=== PATIENT | female | born 1995 | race American Indian/Alaskan Native ===

== ENCOUNTER 2021-01-28 20:14 | Emergency (ER) | payer OTHER ==
[~2021-01-28] VITALS: Ht 172.7 cm; Wt 154.2 kg
--- OUTSIDE RECORDS SUMMARY | 2021-01-28 20:16 | XMS ---
PreManage Notification: RASHARD CUMMINGS Security [employer] Developer Events No recent Security Events currently on file [facility] There are no care providers on record at this time. Marvin has no Care Guidelines for this patient. Armand VISIT COUNT (12 MO.) 1 ALEJANDRINA Ibrahim TOTAL 1 NOTE: Visits indicate total known visits. ED/C VISIT TRACKING (12 MO.) 01/28/2021 20:15 ALEJANDRINA Hahn OR TYPE: Emergency COMPLAINT: - FALL INPATIENT VISIT TRACKING (12 MO.) No inpatient visits to display in this time frame [email or web address]
[2021-01-28] MEDS ORDERED: EFFEXOR XR37.5 MG PO (20:36)
[2021-01-28] MEDS ORDERED: LORAZEPAM1 MG PO (20:36)
[2021-01-28] MEDS ORDERED: HYDROXYZINE HCL25 MG PO (20:37)
[2021-01-28] MEDS ORDERED: HYDROCODON-ACE1 EA10 PO (21:28)
[2021-01-28] MEDS ORDERED: CRUTCH1 EACH (21:28)
== END 2021-01-28 21:56 | disposition home or self-care (01) ==
LOC: ED 20:14
DX: S80.02XA Contusion of left knee, initial encounter (principal); W01.0XXA Fall on same level from slipping, tripping and stumbling without subsequent striking against object, initial encounter
CPT/HCPCS: 73560; 99283-25

== ENCOUNTER 2022-07-05 17:08 | Emergency (ER) | payer OTHER ==
[~2022-07-05] VITALS: Ht 172.7 cm; Wt 163.3 kg
[~2022-07-05 17:08] MED LIST: ABILIFY2 MG PO; CEPHALEXIN500 M1 PO; CRUTCH1 EACH; DOXYCYCLINE MO100 M1 PO; EFFEXOR XR37.5 MG PO; HYDROCODON-ACE1 EA10 PO; HYDROXYZINE HCL25 MG PO; LORAZEPAM1 MG PO; ONDANSETRON ODT8 MG PO; PRAZOSIN HCL2 MG PO
--- OUTSIDE RECORDS SUMMARY | 2022-07-05 17:12 | XMS ---
PreManage Notification: RASHARD CUMMINGS Security Hr Administrative Assistant Events No recent Security Events currently on file CRITERIA MET - [facility] [place] - 2 Visits in 30 Days CARE PROVIDERS [facility] Case Management 01/30/2021-[facility] PHONE: [phone] Marvin has no Care Guidelines for this patient. Care History Medical/Surgical 01/30/2021 [facility] - PATIENT IS [facility] ELIGIBLE, \T\middot;\T\nbsp; PLEASE REFER PATIENT TO [facility] FOR NON EMERGENT MEDICAL NEEDS. \T\middot;\T\nbsp; [facility] CAN SEE PATIENTS SAME DAY FOR APTS IF PATIENT CALLS FIRST THING IN THE MORNING. E.D. VISIT COUNT (12 MO.) [address] [place] [address] TOTAL 2 NOTE: Visits indicate total known visits. ED/UCC VISIT TRACKING (12 MO.) 07/05/2022 17:09 ALEJANDRINA Hahn OR TYPE: Emergency COMPLAINT: - N/V 07/03/2022 18:13 ALEJANDRINA Hahn OR TYPE: Emergency COMPLAINT: - VOMITING INPATIENT VISIT TRACKING (12 MO.) No inpatient visits to display in this time frame [email or web address]
[2022-07-05] MEDS ORDERED: ONDANSETRON ODT8 MG PO (23:05)
[2022-07-05] MEDS ORDERED: CEFDINIR300 MG PO (23:05)
[2022-07-05] MEDS ORDERED: PROMETHEGAN25 MG PR (23:05)
== END 2022-07-06 00:27 | disposition home or self-care (01) ==
LOC: ED 17:08
DX: N39.0 Urinary tract infection, site not specified (principal); E86.0 Dehydration; Z79.899 Other long term (current) drug therapy
CPT/HCPCS: 36415; 80053; 81001; 83690; 85025; 96361; 96374; 96375; 99284-25; A9270; J1790; J1885; J2405; J7030